=== PATIENT | male | born 1935 | race Caucasian/White ===

== ENCOUNTER → 2017-07-01 | Outpatient (CLI) | payer MEDICARE, OTHER ==
[2017-07-01] MEDS: BARIUM SULFATE 40% (APPLE) 148 GM PWD. PO ×2 (14:01)
== END | disposition home or self-care (01) ==
LOC: RAD 13:36
DX: R13.10 Dysphagia, unspecified (principal)
CPT/HCPCS: 74230; 92611-GN; G8996-CH-GN; G8997-CH-GN; G8998-CH-GN